=== PATIENT | male | born 1935 | race Caucasian/White ===

== ENCOUNTER 2017-03-09 02:13 | Observation (INO) | payer MEDICARE ==
[~2017-03-09] VITALS: Ht 180.3 cm; Wt 91.2 kg
--- NOTE | ~2017-03-09 | HP ---
History And Physical [place] [address] [facility] [place]. [address] NAME: NORBERTO TAYLOR : 39 STATUS : ADM Yuliet PAT#: [id number] AGE: 82 ADM/REG DATE : 03/09/17 MR#: [id number] REPORT SERV DATE: 03/09/17 DICTATED BY: CHRISTIANNE VOGT DATE: 03/09/17 REPORT STATUS : Draft TRANSCRIBED BY: MODL DATE: 03/09/17 DATE OF ADMISSION: 03/09/2017 CHIEF COMPLAINT: Chest pain. Transferred from [facility]. HISTORY OF PRESENT ILLNESS: The patient is a very pleasant 82-year-old male, [place] , with past medical history of coronary artery disease followed by [facility] as an outpatient, prior stents over 10 years ago, non-insulin dependent diabetic, hypertension, hyperlipidemia history, who presents after having an episode of chest pain that was 10/10. Currently nonradiating and improved, but earlier today when family members, I believe daughter and son-in-law, who are currently taking care of his in [place] came to his home who tried to take different objects. The patient reports that his has been very sick and he was told that she was not able to take care of him anymore, and she had to move, I believe under hospice, with his daughter who is in [place], and they came to remove the stuff which upset the patient and he called the law on them. However, after this episode he started having 10/10 pain, from outside records this was also related radiating to his back. Symptoms improved with nitroglycerin and is down to 3/10 pain then. The patient additionally had mild right quadrant pain that was also reproducible, but negative imaging at outside facility except for fatty liver. The patient reports that symptoms were not present. The patient did not report that this was exertional type pain. It is not associated with any palpitations, shortness of breath, nausea, vomiting, diarrhea, diaphoresis, and not reproducible on chest wall palpation currently, but also only improved with time and actually pain medication given at outside facility. Of note, the patient does describe pain was slightly sharp stabbing and felt similar to that when he has had his heart attack 20 years ago. REVIEW OF SYSTEMS: Additional 10-point review of systems negative except for that noted in the HPI. PAST MEDICAL HISTORY: 1. Hypertension. 2. Hyperlipidemia. 3. COPD. 4. Diabetes. 5. WA. 6. Back discomfort. ALLERGIES: NO KNOWN DRUG ALLERGIES. PAST SURGICAL HISTORY: The patient reports a three-vessel CABG from groin approach as the patient does not have any chest wall scars, this was done in [place], and has had back surgeries. Additionally trauma to shrapnel discharged to right ear and posterior head. SOCIAL HISTORY: Quit smoking and alcohol many years ago. No illicits. Quit smoking after History And Physical [address] [address] NAME: NORBERTO TAYLOR : 39 STATUS : ADM Yuliet PAT#: [id number] AGE: 82 ADM/REG DATE : 03/09/17 MR#: [id number] REPORT SERV DATE: 03/09/17 DICTATED BY: CHRISTIANNE VOGT DATE: 03/09/17 REPORT STATUS : Draft TRANSCRIBED BY: ROBERTA DATE: 03/09/17 having his heart attack. He is a [place] . FAMILY HISTORY: None. The patient reports there is no heart disease, diabetes, or cholesterol that he could recall of. MEDICATIONS: Brief list not yet confirmed by Pharmacy of: 1. Metformin. 2. Atenolol. 3. Simvastatin. 4. Aspirin. PHYSICAL EXAMINATION: VITAL SIGNS: The patient's blood pressure 163/73, O2 sats 92%, temperature 98.1, pulse 75, and respirations 19. GENERAL: No acute distress. In joking manner. Well developed, well nourished. EYES: No scleral icterus. EOMI. ENT: Nares patent. Tongue midline. RESPIRATORY: Clear to auscultation. No wheezes or rales currently. CV: Regular rate. No rubs or gallops. Mildly hypertensive. No pedal edema. Cap refill less than 2 seconds. ABDOMEN: Mild tenderness to palpation in all quadrants, not just limited to right upper quadrant, but appears to be more so on the right side, but is reproducible in all quadrants. CHEST: During examination and talking, the patient did have repeat episode of chest wall that was on the left breast area, but nonradiating at this time, which resolved shortly. EXTREMITIES: Moves all extremities x4. NEUROLOGIC: Alert and oriented. Symmetrical strength in upper and lower extremities. Symmetrical vocal kenzie. Symmetrical smile. PSYCH: Appropriate mood and affect. SKIN: Warm and dry. LYMPH: No cervical lymphadenopathy. LABORATORY DATA: Labs from outside facility. Negative troponin. WBC 6.6, H and H 13.9 and 41.1, and platelets of 155. Sodium 138, potassium 4.1, chloride 100, CO2 of 22, calcium 9.5, glucose 342, BUN 18, and creatinine 1.02. AST and ALT 31 and 39. T bilirubin 0.3. Alkaline phosphatase 107. Lipase 27. ProBNP 101. Normal range at outside facility is 0 to 1799. CK total 61. CK-MB 2.3. MB at 3.8. EKG showed normal sinus rhythm. Rate was 65 with a QTc of 409. No dynamic ST changes currently. Chest x-ray: Mild hyperaeration suggestive of COPD. History And Physical [address] [address] NAME: NORBERTO TAYLOR : 39 STATUS : ADM Yuliet PAT#: [id number] AGE: 82 ADM/REG DATE : 03/09/17 MR#: [id number] REPORT SERV DATE: 03/09/17 DICTATED BY: CHRISTIANNE VOGT DATE: 03/09/17 REPORT STATUS : Draft TRANSCRIBED BY: ROBERTA DATE: 03/09/17 An ultrasound of abdomen in right quadrant enlarged fatty liver, poor visualization of the pancreas, distended gallbladder with positive Mayer sign; however, no sonographic evidence of acute cholecystitis. ASSESSMENT AND PLAN: 1. Chest pain. 2. Chronic obstructive pulmonary disease. 3. Diabetes type 2. 4. Hypertension. 5. Hyperlipidemia. 6. Fatty liver with right lower quadrant pain. 7. Situational anxiety. PLAN: 1. For chest pain, negative troponin x1. Repeat serial troponins. Check EKG, previously okay. Positive coronary artery disease history with risk factors of hypertension, diabetes, hyperlipidemia, and prior stents. The patient also reports prior CABG, although no sternal scar noted, and reports this was done in [place] with groin approach. We will try to arrange for stress test. The patient was seen by [facility] when he was stented years ago. Additional concern that the patient reports this feels similar to prior. We will ask [facility] for additional evaluation if unable to obtain a stress test on weekend. 2. COPD. O2 and DuoNeb, not in acute exacerbation. Does have mild hyperinflation on chest x-ray at outside facility. 3. Diabetes type 2, non-insulin dependent. Sliding scale insulin. Check A1c. 4. Hypertension. Monitor. We will continue home medications as possible; however, the patient on atenolol, and we will hold until able to take stress test. 5. Hyperlipidemia. On simvastatin. Check lipid profile. 6. Fatty liver with right lower quadrant pain. Ultrasound done at outside facility, questionable gallbladder. We will check hepatitis, CMP, CPK panel. 7. Situational anxiety. Due to additional family stress p.r.n. Ativan was given at outside facility. We will additionally have p.r.n. as needed. All questions were answered with the patient. DISPOSITION: Pending findings from above and cardiac evaluation and stress test evaluation. DDN/ROBERTA Christianne Vogt MD / [id number] CC: History And Physical [address] [address] NAME: NORBERTO TAYLOR : 39 STATUS : ADM Yuliet PAT#: [id number] AGE: 82 ADM/REG DATE : 03/09/17 MR#: [id number] REPORT SERV DATE: 03/09/17 DICTATED BY: CHRISTIANNE VOGT DATE: 03/09/17 REPORT STATUS : Draft TRANSCRIBED BY: MODL DATE: 03/09/17 Sandhya Chacon MD UNKNOWN
--- NOTE | ~2017-03-09 | CN ---
Consultation Report [facility] [address] [place]. [address] NAME: NORBERTO TAYLOR : 39 STATUS : DIS Yuliet PAT#: [id number] AGE: 82 ADM/REG DATE : 03/09/17 MR#: [id number] REPORT SERV DATE: 03/09/17 DICTATED BY: PATRICK OGDEN SAMUEL O. DATE: 03/09/17 REPORT STATUS : Draft TRANSCRIBED BY: MODPasquale DATE: 03/09/17 CARDIOLOGY CONSULTATION DATE OF CONSULTATION: 03/09/2017 I was asked see the patient for chest pain. HISTORY: This is an 82-year-old male with history of coronary artery disease, status post percutaneous intervention, hypertension, hyperlipidemia, COPD, diabetes who had chest pain yesterday during an argument with his stepdaughter. During this emotional distress, he had 10/10 chest pain and was brought to the emergency department. The patient came into the emergency department and was given nitroglycerin which ultimately relieved his pain. He has remained chest-pain free overnight. His cardiac biomarkers have been negative and no EKG changes of ischemia. His last chest pain was over 10 years ago. He states he has a history of chest pain and reports undergoing a CABG although there is no midsternal incision and he states that this occurred in [place] and that they went through his groin. Given that I feel that he likely underwent percutaneous intervention at that time. He also underwent a percutaneous intervention through a president and ceo at [facility] 10 years ago but does not remember the name. He has not had followup with the cardiology since then because he has been doing so well. He has not had any chest pain over the last 10 years. He states he is able to walk approximately 3 to 4 blocks and is limited by arthritis and knee pain. He has mild orthopnea and rare lower extremity edema. He denies any palpitations or syncope. He has been compliant with his medications over time and followed up with his primary care physicians. PAST MEDICAL HISTORY: Coronary artery disease as noted above. Diabetes. Hypertension. Hyperlipidemia. COPD. Back pain. PAST SURGICAL HISTORY: Shrapnel from his right ear and posterior head as being a [place] . SOCIAL HISTORY: Past tobacco use although quit this 22 years ago. 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 History of significant alcohol use but quit this as well 20 years ago. He currently lives alone in [place], but his was put in an assisted living facility. He is undergoing significant emotional distress with this as noted with his stepdaughter taking some items from his house. FAMILY HISTORY: No significant coronary artery disease and no sudden cardiac in his family. MEDICATIONS: Include metformin, atenolol, simvastatin, and aspirin. Consultation Report [address] [place]. [address] NAME: NORBERTO TAYLOR : 39 STATUS : DIS Yuliet PAT#: [id number] AGE: 82 ADM/REG DATE : 03/09/17 MR#: [id number] REPORT SERV DATE: 03/09/17 DICTATED BY: PATRICK OGDEN SAMUEL O. DATE: 03/09/17 REPORT STATUS : Draft TRANSCRIBED BY: ROBERTA DATE: 03/09/17 ALLERGIES: NO KNOWN DRUG ALLERGIES. PHYSICAL EXAMINATION: VITAL SIGNS: Temperature of 97.8, pulse of 69, blood pressure of 134/63, respirations of 16, and saturating 95% on room air. GENERAL: Pleasant elderly male, in no acute distress. HEENT: Normocephalic, atraumatic. He is anicteric. Moist mucous membranes. NECK: No jugular venous distention. Carotids are 2+ with good upstroke. LUNGS: Clear to auscultation bilaterally. Symmetric expansion. CARDIOVASCULAR: Regular rate and rhythm with no murmurs, rubs, or gallops. There is no jugular venous distention. ABDOMEN: Soft, nontender, and nondistended. SKIN: There is no sternal incision present. EXTREMITIES: There is no clubbing, cyanosis, or edema. There are mildly diminished pulses of the dorsalis pedis and posterior tibialis bilaterally. LABORATORY DATA: Sodium of 137, potassium 4.1, BUN of 16, and creatinine 0.9. White blood cell count of 6, hemoglobin 13, and platelets of 152. Troponin x1 is negative. TSH 3.9. BNP of 29. EKG sinus rhythm with a rate of 68. There are no ST-segment changes consistent with ischemia. PROBLEM: 1. Chest pain is typical with emotional stress inducing this. His cardiac biomarkers so far negative x1. An electrocardiogram has no ischemic changes. He has a history of coronary disease, status post PCI by history as well as significant risk factors. I have recommended that he continue treatment with his aspirin, beta randell, and statin and remain inpatient for stress test tomorrow. We also will check an echocardiogram. He is considering leaving the hospital to check on his house in order to get it locked down. I have told him I would advise against this and if he leaves, that will be against medical advice. 2. Hypertension currently stable. 3. Diabetes. 4. Chronic obstructive pulmonary disease. Thank you very much for allowing us to participate in the care of your patient. BUDDY/ROBERTA Jai Ogden MD / [id number] CC: Consultation Report [address] [address] NAME: NORBERTO TAYLOR : 39 STATUS : DIS Yuliet PAT#: [id number] AGE: 82 ADM/REG DATE : 03/09/17 MR#: [id number] REPORT SERV DATE: 03/09/17 DICTATED BY: PATRICK OGDEN SAMUEL O. DATE: 03/09/17 REPORT STATUS : Draft TRANSCRIBED BY: ORBERTA DATE: 03/09/17 Sandhya Chacon MD
--- NOTE | ~2017-03-09 | DS ---
Discharge Summary [facility] [address] [facility] [place]. [address] NAME: NORBERTO TAYLOR : 39 STATUS : DIS Yuliet PAT#: [id number] AGE: 82 ADM/REG DATE : 03/09/17 MR#: [id number] REPORT SERV DATE: 03/09/17 DICTATED BY: SANDHYA LEON DATE: 03/09/17 REPORT STATUS : Draft TRANSCRIBED BY: ROBERTA DATE: 03/09/17 ADMISSION DATE: 03/09/2017 DISCHARGE DATE: 03/09/2017 DISCHARGE DIAGNOSES: 1. Chest pain. 2. History of coronary artery disease. 3. Chronic obstructive pulmonary disease. 4. Diabetes mellitus type 2. 5. Hypertension. 6. Hyperlipidemia. 7. Depression and anxiety. 8. Dyslipidemia. IMAGING: None. No imaging studies were performed. Myocardial stress test and echocardiogram were not performed because the patient left AMA. HISTORY OF PRESENT ILLNESS: For detailed HPI, please make reference to Dr. Nagi Garcia's dictation on 03/09/2017. In brief, this is an 82-year-old male with medical history of coronary artery disease, hypertension, dyslipidemia, who was transferred from [facility] to [facility] for evaluation of chest pain. The patient reports that he got into an argument with his stepchildren over the disposition of the possessions of his who is currently in hospice care. The argument got heated. The patient subsequently developed chest pain. EMS was called and he went to the emergency room. The patient was subsequently transferred to [facility] for acute coronary syndrome evaluation. HOSPITAL COURSE: Chest pain. The patient was given aspirin and nitroglycerin pills. In the ER, the patient's chest pain subsequently improved. At the time of my evaluation, the patient was chest-pain free. Troponin was negative x2. Cardiology Dr. Hampton had evaluated the patient. It was recommended for patient to undergo stress test and echocardiogram. The patient adamantly declined further testing during this hospitalization. He reports that he wants to go home to take care of his business. He is concerned that his stepchildren might go back to the house and steal all his personal possessions, hence he does not want to stay in the hospital for further evaluation. The patient was counseled on the need for further testing as recommended by Cardiology, but the patient declined. Hence, the patient decided to sign against medical advice. IOO/ROBERTA Sandhya Leon MD Discharge Summary [place] [address] [address] NAME: NORBERTO TAYLOR : 39 STATUS : DIS Yuliet PAT#: [id number] AGE: 82 ADM/REG DATE : 03/09/17 MR#: [id number] REPORT SERV DATE: 03/09/17 DICTATED BY: SANDHYA LEON DATE: 03/09/17 REPORT STATUS : Draft TRANSCRIBED BY: ROBERTA DATE: 03/09/17 / [id number] CC: Sandhya Leon MD
[~2017-03-09 02:13] MED LIST: ASAB PO; ATEN25 PO; GLUCPH PO; LORTAB10 PO; NITROLINGUAL S4.9 GM SL; PROAIR HFA INH; ZOCOR40 PO
[2017-03-09 05:45] LABS: BASOPHILS 0.2 %; BASOPHILS ABSOLUTE 0.01 10/3/uL (0.0-0.16); EOSINOPHILS 1.8 %; EOSINOPHILS ABSOLUTE 0.12 10/3/uL (0.0-0.53); HEMATOCRIT 39.9 % (40.0-51.0); HEMOGLOBIN 13.4 g/dL (13.6-17.8); IMMATURE GRANULOCYTES 0.2 %; IMMATURE GRANULOCYTES ABSOLUTE 0.01 10/3/uL (0.0-0.11); LYMPHOCYTES 22.3 %; LYMPHOCYTES ABSOLUTE 1.46 10/3/uL (0.67-4.30); MEAN CORPUS HGB CONC 33.6 g/dL (32.0-36.0); MEAN CORPUSCULAR HEMOGLOB 29.5 pg (26.0-34.0); MEAN CORPUSCULAR VOLUME 87.9 fL (80-100); MEAN PLATELET VOLUME 10.5 fL (9.2-13.0); MONOCYTES 7.8 %; MONOCYTES ABSOLUTE 0.51 10/3/uL (0.21-1.20); NEUTROPHILS 67.7 %; NEUTROPHILS ABSOLUTE 4.44 10/3/uL (2.02-8.40); PLATELET COUNT 152 10/3/uL (150-400); RED CELL COUNT 4.54 10/6/uL (4.7-6.1); WHITE BLOOD CELLS 6.6 10/3/uL (4.5-10.5)
[2017-03-09 05:53] LABS: MANUAL DIFF NO %
[2017-03-09 06:16] LABS: ALBUMIN 3.6 G/DL (3.5-5.0); CALCIUM, SERUM 9.5 MG/DL (8.5-10.4); CHLORIDE, SERUM 104 MMOL/L (96-112); CHOL/HDL RATIO(NOT ORDER) 7.1 (0-5); CHOLESTEROL 212 MG/DL (< 200); CREATININE 0.92 MG/DL (0.70-1.30); GFR AFRICAN AMERICAN 91 ML/MIN (>=60); GFR NON AFRICAN AMERICAN 78 ML/MIN (>=60); GLOBULIN 3.6 G/DL (2.5-4.1); GLUCOSE, SERUM 267 MG/DL (60-99); HDL CHOLESTEROL 30 MG/DL (> 39); LDL CHOLESTEROL 137 MG/DL (< 130); NON-HDL CHOLESTEROL 182 MG/DL (< 160); PHOSPHORUS, SERUM 2.5 MG/DL (2.5-4.5); POTASSIUM, SERUM 4.1 MMOL/L (3.5-5.3); SGOT(AST) 27 U/L (5-40); SGPT(ALT) 44 U/L (5-65); SODIUM, SERUM 137 MMOL/L (135-148); TOTAL BILIRUBIN 0.3 MG/DL (0-1.2); TOTAL PROTEIN 7.2 G/DL (6.0-8.5); TRIGLYCERIDE 229 MG/DL (< 150); TROPONIN I <0.02 NG/ML (<0.05)
[2017-03-09 06:17] LABS: CO2 (CARBON DIOXIDE) 25 MMOL/L (24-34)
[2017-03-09 06:18] LABS: ALKALINE PHOSPHATASE 103 U/L (45-117); BUN (BLOOD UREA NITROGEN) 16 MG/DL (6-23); CK-MB 1.6 NG/ML; CPK 57 U/L (0-200)
[2017-03-09 06:47] LABS: B NATRIURETIC PEPTIDE (BNP) 29.9 PG/ML (< 100.0)
[2017-03-09 06:59] LABS: PROCALCITONIN 0.09 ng/mL (<0.5)
[2017-03-09 07:22] LABS: GLYCOHEMOGLOBIN (HbA1c) 10.2 % (4.7-6.1)
[2017-03-10 10:38] LABS: HEPATITIS B SURFACE ANTIGEN NON-REACTIVE (NON-REACT)
[2017-03-10 10:44] LABS: HEPATITIS C ANTIBODY NON-REACTIVE (NON-REACT)
[2017-03-10 10:45] LABS: HEPATITIS B CORE AB IGM NON-REACTIVE (NON-REAC)
[2017-03-10 10:46] LABS: HEP A ANTIBODY IGM NON-REACTIVE (NON-REACT)
== END 2017-03-09 14:07 | disposition left against medical advice (07) ==
LOC: ENRESERVTM → ENRESERV → ENRESERVDT → CDU1 04:13
PROVIDERS: Student in an Organized Health Care Education/Training Program
DX: R07.89 Other chest pain (principal); I25.10 Atherosclerotic heart disease of native coronary artery without angina pectoris; J44.9 Chronic obstructive pulmonary disease, unspecified; E11.9 Type 2 diabetes mellitus without complications; I10 Essential (primary) hypertension; E78.5 Hyperlipidemia, unspecified; F32.9 Major depressive disorder, single episode, unspecified; F41.9 Anxiety disorder, unspecified; I25.2 Old myocardial infarction; Z79.82 Long term (current) use of aspirin; Z79.84 Long term (current) use of oral hypoglycemic drugs; Z79.899 Other long term (current) drug therapy; Z87.891 Personal history of nicotine dependence; Z98.890 Other specified postprocedural states
CPT/HCPCS: 80053; 80061; 80074; 82550; 82553; 82962; 83036; 83735; 83880; 84100; 84145; 84443; 84484; 85025; 93005; 96372; A9270-GY; G0378